=== PATIENT | male | born 1965 | race Hispanic/Latino ===

== ENCOUNTER 2017-05-01 02:25 | Inpatient (IN) | payer MEDICAID ==
[2017-05-01 02:26] VITALS: BMI 25.8
[2017-05-01 02:31] LABS: ABG ALLEN TEST YES; ARTERIAL BLOOD GAS HCO3 25.2 mmol/L (21-28); ARTERIAL BLOOD GAS MODE 100%NRB; ARTERIAL BLOOD GAS O2 CAPACITY 17.5 mL/dL (16-24); ARTERIAL BLOOD GAS O2 CONTENT 17.5 ML/dL (15-23); ARTERIAL BLOOD GAS PH 7.32 (7.35-7.45); ARTERIAL BLOOD GAS PO2 375 mm/Hg (80-100); ARTERIAL BLOOD HGB O2 SAT 93.7 % (95.0-98.0); CARBOXYHEMOGLOBIN 3.6 % (0.5-1.5); HHB 0.1 % (0.0-5.0); METHEMOGLOBIN 2.7 % (0.0-3.0)
[2017-05-01] MEDS ORDERED: Nitroglycerin 50mg in D5W 50 MG/250 ML BOTTLE IV ONE (02:31)
[2017-05-01 02:43] LABS: VENOUS BLOOD GAS BASE EXCESS 1.9 mmol/L (0.0-2.0); VENOUS BLOOD GAS PCO2 69 mmHg (40-60); VENOUS BLOOD PH 7.26 (7.32-7.43)
[2017-05-01 02:48] LABS: BASO # 0.1 K/uL (0.0-0.2); BASO % 1.2 % (0.0-2.0); EOS # 0.2 K/uL (0.0-0.7); EOS % 2.3 % (0.0-4.0); HEMATOCRIT 36.1 % (35.0-51.0); LYMPH # 1.9 K/uL (1.0-4.3); LYMPH % 26.6 % (20.0-40.0); MEAN CELL VOLUME 82.3 fl (80.0-94.0); MEAN CORPUSCULAR HEMOGLOBIN 27.7 pg (27.0-31.0); MEAN CORPUSCULAR HGB CONC 33.7 g/dL (33.0-37.0); MEAN PLATELET VOLUME 8.2 fl (7.2-11.7); MONO # 0.5 K/uL (0.0-0.8); MONO % 7.3 % (0.0-10.0); NEUT # 4.5 K/uL (1.8-7.0); NEUT % 62.6 % (50.0-75.0); RED CELL DISTRIBUTION WIDTH 15.7 % (11.5-14.5); WHITE BLOOD COUNT 7.3 K/uL (4.8-10.8)
[2017-05-01] MEDS ORDERED: Albuterol-Ipratrop 3 mg / 0.5 (3 ml) UD INH STA ×2 (02:51→02:52)
--- NOTE | 2017-05-01 02:54 | ED PDOC ---
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 Patient states he is compliant with his medications. Of note, EMS attempted to place patient on CPAP but patient would not tolerate it. Past Medical History Reviewed: Historical Data, Nursing Documentation, Vital Signs Vital Signs: Last Vital Signs Temp 99.1 F 05/01/17 02:27 Pulse 89 05/01/17 03:19 Resp 26 H 05/01/17 03:32 BP 127/70 05/01/17 03:19 Pulse Ox 99 05/01/17 03:19 - Medical History PMH: Back Problems (disc surgery x 3), Depression, HTN Denies: Diabetes, Hepatitis, HIV, Chronic Kidney Disease, Seizures, Sexually Transmitted Disease - Surgical History Surgical History: Back Surgery - Family History Family History: States: No Known Family Hx - Immunization History Hx Tetanus Toxoid Vaccination: No Hx Influenza Vaccination: No Hx Pneumococcal Vaccination: No - Home Medications Home Medications: Ambulatory Orders Medication Instructions Recorded Hydrochlorothiazide [HCTZ] 12.5 mg PO DAILY #30 05/01/15 Acetaminophen/Oxycodone Hydr 1 tab PO Q6H 05/17/15 [Percocet 10/325 mg Tab] Cyclobenzaprine [Flexeril] 10 mg PO TID PRN #0 tab 05/19/15 Meloxicam [Mobic] 15 mg PO DAILY PRN 05/01/17 amLODIPine [Norvasc] 10 mg PO DAILY 05/01/17 - Allergies Allergies/Adverse Reactions: Allergies Allergy/AdvReac Type Severity Reaction Status Date / Time No Known Allergies Allergy Verified 05/30/16 10:09 Review of Systems ROS Statement: Except As Marked, All Systems Reviewed And Found Negative Cardiovascular: Positive for: Chest Pain Respiratory: Positive for: Shortness of Breath Physical Exam - Reviewed Nursing Documentation Reviewed: Yes Vital Signs Reviewed: Yes - Physical Exam Appears: Positive for: In Acute Distress (moderate to severe respiratory distress ) Head Exam: Positive for: ATRAUMATIC, NORMAL INSPECTION, NORMOCEPHALIC Skin: Positive for: Warm, Dry, Mottled Eye Exam: Positive for: Normal appearance, EOMI, PERRL ENT: Positive for: Normal ENT Inspection Neck: Positive for: Normal, Painless ROM, Supple Cardiovascular/Chest: Positive for: Regular Rate, Rhythm. Negative for: Murmur , Tachycardia Respiratory: Positive for: Crackles (diffuse crackles all the way up to lung bases b/l ), Respiratory Distress (moderate to severe respiratory distress ), Other (able to speak near full sentences ) Gastrointestinal/Abdominal: Positive for: Normal Exam, Soft. Negative for: Tenderness Back: Positive for: Normal Inspection. Negative for: L CVA Tenderness, R CVA Tenderness Extremity: Positive for: Normal ROM, Swelling (BLE 2+ pitting edema up to knees ). Negative for: Tenderness, Deformity Neurologic/Psych: Positive for: Alert, Oriented - Laboratory Results Result Diagrams: 05/01/17 02:33 05/01/17 02:33 - ECG O2 Sat by Pulse Oximetry: 100 Pulse Ox Interpretation: Normal - Critical Care Total Time (In Min): 60 Medical Decision Making Medical Decision Makin: Impression: acute pulmonary edema possibly secondary to new onset CHF Plan: ABG, VBG EKG Labs CXR duoneb 3ml INH x2, Lasix 80mg IVP, nitro 50mg/250ml D5W, solu-medrol 125mg IVP blood culture UA reassess 4AM: Pt.'s breathing markedly improved after lasix, nitro, and high flow o2. 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 Will place in ICU for one night, case discussed with Dr. Almanzar, hospitalist. Scribe Attestation: Documented by Vanesa Dominguez acting as a scribe for Josh Walters MD. Provider Scribe Attestation: All medical record entries made by the Scribe were at my direction and personally dictated by me. I have reviewed the chart and agree that the record accurately reflects my personal performance of the history, physical exam, medical decision making, and the department course for this patient. I have also personally directed, reviewed, and agree with the discharge instructions and disposition. Disposition - Clinical Impression Clinical Impression: Respiratory distress, CHF (congestive heart failure), COPD (chronic obstructive pulmonary disease) - Disposition Disposition Time: 04:00 Condition: STABLE
[2017-05-01 03:12] LABS: ALB/GLOB RATIO 1.3 (1.0-2.1); ALKALINE PHOSPHATASE 129 U/L (38-126); ALT/SGPT 65 U/L (21-72); AST/SGOT 69 U/L (17-59); BILIRUBIN,TOTAL 0.3 mg/dl (0.2-1.3); BLOOD UREA NITROGEN 10 mg/dl (9-20); CALCIUM 8.4 mg/dL (8.4-10.2); CARBON DIOXIDE 26 mmol/L (22-30); CHLORIDE 99 mmol/L (98-107); GFR AFRICAN-AMERICAN > 60; GLUCOSE,RANDOM 135 mg/dL (75-110); POTASSIUM 3.7 MMOL/L (3.6-5.0); SODIUM 135 mmol/l (132-148); TOTAL PROTEIN 7.6 G/DL (6.3-8.2)
--- NOTE | 2017-05-01 04:15 | CP.PCM.HP ---
History of Present Illness - History of Present Illness History of Present Illness: CC: SOB HPI: This is a 52 y/o male with MHx significant for HTN who comes in with worsening SOB, MOURA, and orthopnea x 2 days. States he believes this started after he began taking Meloxicam a few days ago. Denies any CP or pressure per se , only breathing difficulties. Denies palpitations/diaphoresis. Denies cough, f/ c/n/v/d. Has never had these types of breathing symptoms before. Nothing seems to make symptoms better or worse. ROS: 14 systems reviewed, negative other than HPI MHx: HTN SHx: Back surgeries in the past Allergies: Naproxen Medications: As per med rec Family Hx: CAD and DM2 on both sides; brother recently with NH@58 Social Hx: Lives alone, smokes 1 ppd, occasional EtOH Present on Admission - Present on Admission Any Indicators Present on Admission: No Past Patient History - Infectious Disease Hx of Infectious Diseases: None - Tetanus Immunizations Tetanus Immunization: Unknown - Past Medical History & Family History Past Medical History?: Yes - Past Social History Smoking Status: Heavy Smoker > 10 Cigarettes Daily - CARDIAC Hx Hypertension: Yes - PULMONARY Hx Respiratory Disorders: No - NEUROLOGICAL Hx Seizures: No - HEENT Hx HEENT Problems: No - RENAL Hx Chronic Kidney Disease: No - ENDOCRINE/METABOLIC Hx Endocrine Disorders: No - HEMATOLOGICAL/ONCOLOGICAL Hx Human Immunodeficiency Virus (HIV): No - INTEGUMENTARY Hx Dermatological Problems: No - MUSCULOSKELETAL/RHEUMATOLOGICAL Hx Musculoskeletal Disorders: Yes - GASTROINTESTINAL Hx Gastrointestinal Disorders: No Hx Vomiting: Yes - GENITOURINARY/GYNECOLOGICAL Hx Sexually Transmitted Disorders: No - PSYCHIATRIC Hx Depression: Yes - SURGICAL HISTORY Hx Surgeries: Yes - ANESTHESIA Hx Anesthesia: Yes Hx Anesthesia Reactions: No Hx Malignant Hyperthermia: No Meds Allergies/Adverse Reactions: Allergies Allergy/AdvReac Type Severity Reaction Status Date / Time No Known Allergies Allergy Verified 05/30/16 10:09 Physical Exam - Constitutional Appears: No Acute Distress - Head Exam Head Exam: ATRAUMATIC, NORMOCEPHALIC - Eye Exam Eye Exam: EOMI, PERRL - ENT Exam ENT Exam: Mucous Membranes Moist - Neck Exam Neck exam: Positive for: Full Rom - Respiratory Exam Respiratory Exam: Rales, NORMAL BREATHING PATTERN - Cardiovascular Exam Cardiovascular Exam: REGULAR RHYTHM, +S1, +S2 - GI/Abdominal Exam GI & Abdominal Exam: Normal Bowel Sounds, Soft - Extremities Exam Extremities exam: Positive for: full ROM, normal inspection - Neurological Exam Neurological exam: Alert, CN II-XII Intact, Oriented x3 - Psychiatric Exam Psychiatric exam: Normal Affect, Normal Mood - Skin Skin Exam: Dry, Warm Results - Vital Signs Recent Vital Signs: Last Vital Signs Temp 99.1 F 05/01/17 02:27 Pulse 89 05/01/17 03:19 Resp 26 H 05/01/17 03:32 BP 127/70 05/01/17 03:19 Pulse Ox 99 05/01/17 03:19 - Labs Result Diagrams: 05/01/17 02:33 05/01/17 02:33 Labs: Laboratory Results - last 24 hr 05/01/17 05/01/17 05/01/17 02:25 02:33 02:33 WBC 7.3 RBC 4.39 L Hgb 12.2 Hct 36.1 MCV 82.3 D MCH 27.7 MCHC 33.7 RDW 15.7 H Plt Count 366 D MPV 8.2 Neut % (Auto) 62.6 Lymph % (Auto) 26.6 [place] % (Auto) 7.3 Eos % (Auto) 2.3 Baso % (Auto) 1.2 Neut # 4.5 Lymph # 1.9 [place] # 0.5 Eos # 0.2 Baso # 0.1 PT INR APTT pCO2 53 H pO2 375 H HCO3 25.2 ABG pH 7.32 L ABG Total CO2 28.9 H ABG O2 Saturation 99.9 H ABG O2 Content 17.5 ABG Base Excess 0.4 ABG Hemoglobin 12.5 ABG Carboxyhemoglobin 3.6 H POC ABG HHb (Measured) 0.1 ABG Methemoglobin 2.7 ABG O2 Capacity 17.5 Gopi Test Yes VBG pH VBG pCO2 VBG HCO3 VBG Total CO2 VBG O2 Sat (Calc) VBG Base Excess VBG Potassium A-a O2 Difference 272.0 Hgb O2 Saturation 93.7 L Glucose Lactate Vent Mode 100%nrb FiO2 100.0 Blood Gas Comments Crit Value Called To Crit Value Called By Crit Value Read Back Blood Gas Notified Time Sodium 135 Potassium 3.7 Chloride 99 Carbon Dioxide 26 Anion Gap 15 BUN 10 Creatinine 1.0 Est GFR ( Amer) > 60 Est GFR (Non-Af Amer) > 60 Random Glucose 135 H Calcium 8.4 Total Bilirubin 0.3 AST 69 H D ALT 65 Alkaline Phosphatase 129 H D Troponin I 0.0290 NT-Pro-B Natriuret Pep 1230 H Total Protein 7.6 Albumin 4.4 Globulin 3.3 Albumin/Globulin Ratio 1.3 Venous Blood Potassium 05/01/17 05/01/17 02:33 02:35 WBC RBC Hgb Hct MCV MCH MCHC RDW Plt Count MPV Neut % (Auto) Lymph % (Auto) [place] % (Auto) Eos % (Auto) Baso % (Auto) Neut # Lymph # [place] # Eos # Baso # PT 10.8 INR 1.0 APTT 28.0 pCO2 pO2 31 HCO3 ABG pH ABG Total CO2 ABG O2 Saturation ABG O2 Content ABG Base Excess ABG Hemoglobin ABG Carboxyhemoglobin POC ABG HHb (Measured) ABG Methemoglobin ABG O2 Capacity Gopi Test VBG pH 7.26 L VBG pCO2 69 H* VBG HCO3 25.1 VBG Total CO2 33.1 H VBG O2 Sat (Calc) 61.6 VBG Base Excess 1.9 VBG Potassium 3.7 A-a O2 Difference Hgb O2 Saturation Glucose 124 H Lactate 1.1 Vent Mode FiO2 100.0 Blood Gas Comments 100nrb Crit Value Called To Emmanuel duncan md Crit Value Called By 333 Crit Value Read Back Y Blood Gas Notified Time 240 Sodium 133.0 Potassium Chloride 99.0 Carbon Dioxide Anion Gap BUN Creatinine Est GFR ( Amer) Est GFR (Non-Af Amer) Random Glucose Calcium Total Bilirubin AST ALT Alkaline Phosphatase Troponin I NT-Pro-B Natriuret Pep Total Protein Albumin Globulin Albumin/Globulin Ratio Venous Blood Potassium 3.7 - EKG Data EKG Interpreted by: Myself EKG shows normal: Sinus rhythm Rate: Normal - EKG Data EKG comments: LBBB, but this is present in prior EKGs - Imaging and Cardiology Chest x-ray Status: Image reviewed by me (Some mild vascular congestion) Assessment & Plan (1) CHF (congestive heart failure) Assessment and Plan: 52 y/o male who presents with what appears to be 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 1) CHF -Will admit to ICU given nitro gtt and need for high flow O2 -Will try to wean of nitro gtt -Cont lasix 40 mg IV daily -Serial troponins -EKG in AM -Echo in AM -Cardiology consult in AM -- Damle 2) HTN -- hold BP medications while on nitro gtt 3) DVT PPx -- SQ Lovenox Status: Acute (2) DVT prophylaxis Status: Acute (3) HTN (hypertension) Status: Acute
[2017-05-01 04:22] LABS: RBC URINE 1 /hpf (0-3); URINE BACTERIA RARE (<OCC); URINE BILIRUBIN NEGATIVE (NEGATIVE); URINE BLOOD NEGATIVE (NEGATIVE); URINE COLOR COLORLESS (YELLOW); URINE GLUCOSE (UA) NEG (Normal); URINE KETONE NEGATIVE (NEGATIVE); URINE LEUKOCYTE ESTERASE NEG Leu/uL (Negative); URINE PROTEIN NEGATIVE (NEGATIVE); URINE UROBILINOGEN 0.2-1.0 mg/dL (0.2-1.0); WBC URINE < 1 /hpf (0-5)
[2017-05-01] MEDS: Nitroglycerin 50mg in D5W 50 MG/250 ML BOTTLE IV ONE ×2 (05:34→05:35)
[2017-05-01] MEDS ORDERED: Enoxaparin 40 mg Syringe SC SCH (09:00)
--- NOTE | 2017-05-01 11:01 | CP.PCM.CON ---
History of Present Illness - History of Present Illness History of Present Illness: Full Note Dictated Congestive cardiomyopathy HTN (chr ANSAID use) Chr lower back pain COPD (due to chr cigarette use) Past Patient History - Infectious Disease Hx of Infectious Diseases: None - Tetanus Immunizations Tetanus Immunization: Unknown - Past Medical History & Family History Past Medical History?: Yes - Past Social History Smoking Status: Heavy Smoker > 10 Cigarettes Daily - CARDIAC Hx Hypertension: Yes - PULMONARY Hx Respiratory Disorders: No - NEUROLOGICAL Hx Seizures: No - HEENT Hx HEENT Problems: No - RENAL Hx Chronic Kidney Disease: No - ENDOCRINE/METABOLIC Hx Endocrine Disorders: No - HEMATOLOGICAL/ONCOLOGICAL Hx Human Immunodeficiency Virus (HIV): No - INTEGUMENTARY Hx Dermatological Problems: No - MUSCULOSKELETAL/RHEUMATOLOGICAL Hx Musculoskeletal Disorders: Yes - GASTROINTESTINAL Hx Gastrointestinal Disorders: No Hx Vomiting: Yes - GENITOURINARY/GYNECOLOGICAL Hx Sexually Transmitted Disorders: No - PSYCHIATRIC Hx Depression: Yes - SURGICAL HISTORY Hx Surgeries: Yes - ANESTHESIA Hx Anesthesia: Yes Hx Anesthesia Reactions: No Hx Malignant Hyperthermia: No Meds Allergies/Adverse Reactions: Allergies Allergy/AdvReac Type Severity Reaction Status Date / Time No Known Allergies Allergy Verified 05/30/16 10:09 - Medications Medications: Current Medications Amlodipine Besylate (Norvasc) 10 mg PO DAILY SUJATA Enoxaparin Sodium (Lovenox) 40 mg SC DAILY SUJATA PRN Reason: Protocol Furosemide (Lasix) 40 mg IVP DAILY SJUATA Nitroglycerin/Dextrose (Nitroglycerin 50 Mg/250 Ml D5w) 50 mg in 250 mls @ 1.5 mls/hr IV .Q24H ONE; 5 MCG/MIN PRN Reason: Protocol Stop: 05/02/17 03:44 Last Admin: 05/01/17 05:35 Dose: Not Given Results - Vital Signs Recent Vital Signs: Last Vital Signs Temp 97.6 F 05/01/17 08:33 Pulse 76 05/01/17 08:33 Resp 20 05/01/17 08:33 BP 130/76 05/01/17 08:33 Pulse Ox 98 05/01/17 08:33 - Labs Result Diagrams: 05/01/17 02:33 05/01/17 02:33 Labs: Laboratory Results - last 24 hr 05/01/17 03:50 Urine Color Colorless Urine Clarity Clear Urine pH 6.0 Ur Specific [place] 1.006 Urine Protein Negative Urine Glucose (UA) Neg Urine Ketones Negative Urine Blood Negative Urine Nitrate Negative Urine Bilirubin Negative Urine Urobilinogen 0.2-1.0 Ur Leukocyte Esterase Neg Urine RBC (Auto) 1 Urine Microscopic WBC < 1 Urine Bacteria Rare
--- NOTE | 2017-05-01 11:57 | RAD ---
PROCEDURE: CHEST RADIOGRAPH, 1 VIEW HISTORY: resp distress COMPARISON: Comparison is made to the previous study 05/17/2015 FINDINGS: LUNGS: Mild pulmonary vascular congestion is noted. PLEURA: No pneumothorax or pleural fluid seen. CARDIOVASCULAR: The cardiac silhouette is prominent in size. OSSEOUS STRUCTURES: No significant abnormalities. VISUALIZED UPPER ABDOMEN: Normal. OTHER FINDINGS: None. IMPRESSION: Mild pulmonary vascular congestion is noted.
--- NOTE | 2017-05-01 13:54 | CARD ---
APPROVED REPORT EKG Measurement Heart [id number] [place] [id number] <Conclusion> Sinus tachycardia Possible Left atrial enlargement Left bundle branch block Abnormal ECG
--- NOTE | 2017-05-01 13:54 | CARD ---
APPROVED REPORT EKG Measurement Heart [id number] <Conclusion> Sinus tachycardia Possible Left atrial enlargement Left bundle branch block Abnormal ECG
--- NOTE | 2017-05-01 17:39 | CON ---
DATE: 05/01/2017 He is hospitalized under the hospitalist's care in room 402, bed 2. HISTORY OF PRESENT ILLNESS: This 52-year-old longstanding hypertensive man, a chronic cigarette user who smokes up to 2 packs of cigarettes a day came into the hospital complaining of profound shortnes s of breath and orthopnea. Admits to having swollen feet for a long time, but has severe effort into lerance because of lower back pain for which he was operated on 16-17 years back. He reports that du ring the back procedure he had cardiac arrhythmia and underwent a coronary angiogram in 2000 and no s ignificant coronary problems were noted. He has never experienced any chest pain, never suffered a m yocardial infarction and denies being treated for fluid in the lungs. Admits to eating salty food. His father of coronary artery disease and a brother who is 4 years older than him has had dolan ry bypass graft surgery. PHYSICAL EXAMINATION: GENERAL: Shows a young man who now breathes a lot more comfortably after having diuresed following i ntravenous Lasix. He is able to lie virtually flat and breathes 16-18 breaths per minute and can car ry on a conversation. VITAL SIGNS: Has a heart rate of 80 beats per minute, regular and a blood pressure of 146/80 mmHg. NECK: His jugular venous pressure was not elevated. CHEST: Emphysematous. EXTREMITIES: There was mild pitting edema of both lower extremities. The extremities are warm, nail beds are pink. There was no central or peripheral cyanosis. There was no clubbing. HEART: The apex was not palpable. The first and second heart sounds were distant but normal. A rhonda nt S3 gallop was audible. A few basilar rales were audible. ABDOMEN: Soft. Liver and spleen were not palpable. His electrocardiogram showed sinus rhythm with a pattern of left bundle branch block. Echocardiogram done this morning shows an enlarged left ventricle with significant left ventricular systolic dysfun ction. LABORATORY DATA: Shows a hemoglobin and hematocrit of 12.2 grams and 36.1% respectively. His arteri al blood gases while on room of 100% rebreather mask his pCO2 was 53 and pO2 was 375. His lactate wa s 1.1. His BUN and creatinine were 10 and 1 mg percent. His electrolytes were normal. Troponin was negative for any myocyte injury. ProBNP was 12,030 pg/mL. IMPRESSION: At this time is congestive cardiomyopathy, possibly secondary to hypertension, chronic o bstructive pulmonary disease with chronic lower back pain and chronic opioid use for analgesia. The patient is being diuresed. Will be started on an MIGNON inhibitor and if he tolerates a small dose of b eta blockade eventually he will need workup to rule out coronary artery disease. David Matt MD cc: 23 TT: 05/01/2017 17:38:36 Confirmation # [id number] Dictation # [id number] mn
--- NOTE | 2017-05-01 18:33 | CARD ---
APPROVED REPORT EXAM: Two-dimensional and M-mode echocardiogram with Doppler and color Doppler. Other Information Quality : GoodRhythm : NSR INDICATION Congestive Heart Failure 2D DIMENSIONS IVSd0.89 (0.7-1.1cm)LVDd7.44 (3.9-5.9cm) LVOT Diameter1.61 (1.8-2.4cm)PWd0.73 (0.7-1.1cm) IVSs0.95 (0.8-1.2cm)LVDs6.74 (2.5-4.0cm) FS (%) 9.4 %PWs1.24 (0.8-1.2cm) M-Mode DIMENSIONS Left Atrium (MM)5.10 (2.5-4.0cm)IVSd0.56 (0.7-1.1cm) Aortic Root3.35 (2.2-3.7cm)LVDd8.77 (4.0-5.6cm) Aortic Cusp Exc.1.82 (1.5-2.0cm)PWd0.91 (0.7-1.1cm) IVSs1.22 cmFS (%) 26 % LVDs6.46 (2.0-3.8cm)PWs1.12 cm Mitral Valve MV E Vqbzjgpo256.4cm/sMV DECEL [id number] A Daulbnsr120.1cm/s MV PAO23qcH/A ratio1.0MVA (PHT)4.16cm2 TDI Lateral E' Peak V10.67cm/sMedial E' Peak V8.15cm/sE/Lateral E'10.0 E/Medial E'13.1 Pulmonary Valve PV Peak Zruqenfo397.4cm/s LEFT VENTRICLE The Left Ventricle is severely dilated. There is normal left ventricular wall thickness. Left ventricle systolic function is severely impaired. The Ejection Fraction is - 20%. There is global severe LV hypokinesia. Transmitral Doppler flow pattern is abnormal. No left ventricle thrombus noted on this study. There is no ventricular septal defect visualized. There is no left ventricular aneurysm. There is no mass noted in the left ventricle. RIGHT VENTRICLE The right ventricle is normal size. There is normal right ventricular wall thickness. The right ventricular systolic function is normal. ATRIA The left atrium is mildly dilated. There is no thrombus suspected in the left atrium. The right atrium size is normal. The interatrial septum is intact with no evidence for an atrial septal defect. AORTIC VALVE The aortic valve is mildly thickened. There is mild to moderate aortic regurgitation. There is no aortic valvular stenosis. MITRAL VALVE The mitral valve is normal in structure and function. There is no evidence of mitral valve prolapse. There is no mitral valve stenosis. Mitral regurgitation is moderate. TRICUSPID VALVE The tricuspid valve is normal in structure and function. There is trace tricuspid regurgitation. There is no tricuspid valve prolapse or vegetation. There is no tricuspid valve stenosis. PULMONIC VALVE The pulmonary valve is normal in structure and function. There is no pulmonic valvular regurgitation. GREAT VESSELS The aortic root is normal in size. The IVC was not visualized. PERICARDIAL EFFUSION There is a tiny posterior pericardial effusion. There is no pleural effusion. <Conclusion> The Left Ventricle is severely dilated. There is normal left ventricular wall thickness. Left ventricle systolic function is severely impaired. The Ejection Fraction is - 20%. The left atrium is mildly dilated. The aortic valve is mildly thickened but not stenotic.. There is mild to moderate aortic regurgitation. The mitral and tricuspid valves are normal. There is moderate mitral regurgitation and trace tricuspid regurgitation.
[2017-05-01] MEDS: Oxycodone/Acetaminophen 5/325 mg Tab PO PRN (20:17)
[2017-05-02 06:40] LABS: MEAN CELL VOLUME 82.4 fl (80.0-94.0); MEAN CORPUSCULAR HEMOGLOBIN 26.8 pg (27.0-31.0); MEAN CORPUSCULAR HGB CONC 32.5 g/dL (33.0-37.0); WHITE BLOOD COUNT 12.6 K/uL (4.8-10.8)
[2017-05-02 06:54] LABS: BLOOD UREA NITROGEN 18 mg/dl (9-20); CARBON DIOXIDE 32 mmol/L (22-30); CHLORIDE 96 mmol/L (98-107); GFR AFRICAN-AMERICAN > 60; GLUCOSE,RANDOM 97 mg/dL (75-110); POTASSIUM 3.9 MMOL/L (3.6-5.0); SODIUM 136 mmol/l (132-148)
[2017-05-02] MEDS: Oxycodone/Acetaminophen 5/325 mg Tab PO PRN (07:38)
--- NOTE | 2017-05-02 08:52 | CP.PCM.PN ---
Subjective - Date & Time of Evaluation Date of Evaluation: 05/02/17 Time of Evaluation: 08:30 - Subjective Subjective: Sitting OOB, reports much relief following diuresis Sinus rhythm at 80 BPM (LBB ) BP 136/70 mm Hg JVP flat Mild pitting oedema present Few basal rales+ Labs (BUN/Creatinin) stable , electrolytes stable Echo shows severe LV dysfunction Pt on Loop diretic+ ACEI+ Beta danny Need for low salt diet explained Pt under stands that he needs to be tested for CAD Lipid profile requested Objective - Vital Signs/Intake and Output Vital Signs (last 24 hours): Temp Pulse Resp BP Pulse Ox 97.9 F 78 20 130/74 95 05/02/17 04:43 05/02/17 04:43 05/02/17 04:43 05/02/17 04:43 05/02/17 04:43 - Medications Medications: Current Medications Carvedilol (Coreg) 6.25 mg PO Q12 SUJATA Cyclobenzaprine HCl (Flexeril) 10 mg PO TID PRN PRN Reason: Muscle spasm Last Admin: 05/02/17 07:38 Dose: 10 mg Enoxaparin Sodium (Lovenox) 40 mg SC DAILY SUJATA PRN Reason: Protocol Furosemide (Lasix) 40 mg IVP DAILY [facility] Last Admin: 05/01/17 14:00 Dose: 40 mg Lisinopril (Zestril) 10 mg PO DAILY [facility] Last Admin: 05/01/17 14:01 Dose: 10 mg Oxycodone/Acetaminophen (Percocet 5/325 Mg Tab) 2 tab PO Q6H PRN PRN Reason: Pain, severe (8-10) Last Admin: 05/02/17 07:38 Dose: 2 tab - Labs Labs: 05/02/17 05:15 05/02/17 05:15 PT 10.8 Seconds (9.8-13.1) 05/01/17 02:33 INR 1.0 (0.9-1.2) 05/01/17 02:33 APTT 28.0 Seconds (25.6-37.1) 05/01/17 02:33
--- NOTE | 2017-05-02 10:51 | CP.PCM.DIS ---
Provider - Provider Date of Admission: 05/01/17 03:48 Attending physician: Divina Almanzar MD Primary care physician: Shaik Kwan BLAND Consults: cardiology consult Time Spent in preparation of Discharge (in minutes): 20 Hospital Course - Lab Results Lab Results: Most Recent Lab Values WBC 12.6 K/uL (4.8-10.8) H D 05/02/17 05:15 RBC 4.12 Mil/uL (4.40-5.90) L 05/02/17 05:15 Hgb 11.0 g/dL (12.0-18.0) L 05/02/17 05:15 Hct 34.0 % (35.0-51.0) L 05/02/17 05:15 MCV 82.4 fl (80.0-94.0) 05/02/17 05:15 MCH 26.8 pg (27.0-31.0) L 05/02/17 05:15 MCHC 32.5 g/dL (33.0-37.0) L 05/02/17 05:15 RDW 16.0 % (11.5-14.5) H 05/02/17 05:15 Plt Count 339 K/uL (130-400) 05/02/17 05:15 MPV 8.2 fl (7.2-11.7) 05/01/17 02:33 Neut % (Auto) 62.6 % (50.0-75.0) 05/01/17 02:33 Lymph % (Auto) 26.6 % (20.0-40.0) 05/01/17 02:33 [place] % (Auto) 7.3 % (0.0-10.0) 05/01/17 02:33 Eos % (Auto) 2.3 % (0.0-4.0) 05/01/17 02:33 Baso % (Auto) 1.2 % (0.0-2.0) 05/01/17 02:33 Neut # 4.5 K/uL (1.8-7.0) 05/01/17 02:33 Lymph # 1.9 K/uL (1.0-4.3) 05/01/17 02:33 [place] # 0.5 K/uL (0.0-0.8) 05/01/17 02:33 Eos # 0.2 K/uL (0.0-0.7) 05/01/17 02:33 Baso # 0.1 K/uL (0.0-0.2) 05/01/17 02:33 PT 10.8 Seconds (9.8-13.1) 05/01/17 02:33 INR 1.0 (0.9-1.2) 05/01/17 02:33 APTT 28.0 Seconds (25.6-37.1) 05/01/17 02:33 pCO2 53 mm/Hg (35-45) H 05/01/17 02:25 pO2 31 mm/Hg (30-55) 05/01/17 02:35 HCO3 25.2 mmol/L (21-28) 05/01/17 02:25 ABG pH 7.32 (7.35-7.45) L 05/01/17 02:25 ABG Total CO2 28.9 mmol/L (22-28) H 05/01/17 02:25 ABG O2 Saturation 99.9 % (95-98) H 05/01/17 02:25 ABG O2 Content 17.5 ML/dL (15-23) 05/01/17 02:25 ABG Base Excess 0.4 mmol/L (-2.0-3.0) 05/01/17 02:25 ABG Hemoglobin 12.5 g/dL (11.7-17.4) 05/01/17 02:25 ABG Carboxyhemoglobin 3.6 % (0.5-1.5) H 05/01/17 02:25 POC ABG HHb (Measured) 0.1 % (0.0-5.0) 05/01/17 02:25 ABG Methemoglobin 2.7 % (0.0-3.0) 05/01/17 02:25 ABG O2 Capacity 17.5 mL/dL (16-24) 05/01/17 02:25 Gopi Test Yes 05/01/17 02:25 VBG pH 7.26 (7.32-7.43) L 05/01/17 02:35 VBG pCO2 69 mmHg (40-60) H* 05/01/17 02:35 VBG HCO3 25.1 mmol/L 05/01/17 02:35 VBG Total CO2 33.1 mmol/L (22-28) H 05/01/17 02:35 VBG O2 Sat (Calc) 61.6 % (40-65) 05/01/17 02:35 VBG Base Excess 1.9 mmol/L (0.0-2.0) 05/01/17 02:35 VBG Potassium 3.7 mmol/L (3.6-5.2) 05/01/17 02:35 A-a O2 Difference 272.0 mm/Hg 05/01/17 02:25 Hgb O2 Saturation 93.7 % (95.0-98.0) L 05/01/17 02:25 Sodium 133.0 mmol/L (132-148) 05/01/17 02:35 Chloride 99.0 mmol/L (98-107) 05/01/17 02:35 Glucose 124 mg/dL (75-110) H 05/01/17 02:35 Lactate 1.1 mmol/L (0.7-2.1) 05/01/17 02:35 Vent Mode 100%nrb 05/01/17 02:25 FiO2 100.0 % 05/01/17 02:35 Blood Gas Comments 100nrb 05/01/17 02:35 Crit Value Called To Emmanuel duncan md 05/01/17 02:35 Crit Value Called By Jonathan 05/01/17 02:35 Crit Value Read Back Y 05/01/17 02:35 Blood Gas Notified Time 240 05/01/17 02:35 Sodium 136 mmol/l (132-148) 05/02/17 05:15 Potassium 3.9 MMOL/L (3.6-5.0) 05/02/17 05:15 Chloride 96 mmol/L (98-107) L 05/02/17 05:15 Carbon Dioxide 32 mmol/L (22-30) H 05/02/17 05:15 Anion Gap 12 (10-20) 05/02/17 05:15 BUN 18 mg/dl (9-20) 05/02/17 05:15 Creatinine 1.0 mg/dL (0.8-1.5) 05/02/17 05:15 Est GFR ( Amer) > 60 05/02/17 05:15 Est GFR (Non-Af Amer) > 60 05/02/17 05:15 Random Glucose 97 mg/dL (75-110) 05/02/17 05:15 Calcium 9.0 mg/dL (8.4-10.2) 05/02/17 05:15 Total Bilirubin 0.3 mg/dl (0.2-1.3) 05/01/17 02:33 AST 69 U/L (17-59) H D 05/01/17 02:33 ALT 65 U/L (21-72) 05/01/17 02:33 Alkaline Phosphatase 129 U/L (38-126) H D 05/01/17 02:33 Troponin I 0.0250 ng/mL (0.00-0.120) 05/02/17 00:10 NT-Pro-B Natriuret Pep 1230 pg/ml (0-900) H 05/01/17 02:33 Total Protein 7.6 G/DL (6.3-8.2) 05/01/17 02:33 Albumin 4.4 g/dL (3.5-5.0) 05/01/17 02:33 Globulin 3.3 gm/dL (2.2-3.9) 05/01/17 02:33 Albumin/Globulin Ratio 1.3 (1.0-2.1) 05/01/17 02:33 Venous Blood Potassium 3.7 mmol/L (3.6-5.2) 05/01/17 02:35 Urine Color Colorless (YELLOW) 05/01/17 03:50 Urine Clarity Clear (Clear) 05/01/17 03:50 Urine pH 6.0 (5.0-8.0) 05/01/17 03:50 Ur Specific [place] 1.006 (1.003-1.030) 05/01/17 03:50 Urine Protein Negative mg/dL (NEGATIVE) 05/01/17 03:50 Urine Glucose (UA) Neg mg/dL (Normal) 05/01/17 03:50 Urine Ketones Negative mg/dL (NEGATIVE) 05/01/17 03:50 Urine Blood Negative (NEGATIVE) 05/01/17 03:50 Urine Nitrate Negative (NEGATIVE) 05/01/17 03:50 Urine Bilirubin Negative (NEGATIVE) 05/01/17 03:50 Urine Urobilinogen 0.2-1.0 mg/dL (0.2-1.0) 05/01/17 03:50 Ur Leukocyte Esterase Neg Alex/uL (Negative) 05/01/17 03:50 Urine RBC (Auto) 1 /hpf (0-3) 05/01/17 03:50 Urine Microscopic WBC < 1 /hpf (0-5) 05/01/17 03:50 Urine Bacteria Rare (<OCC) 05/01/17 03:50 - Hospital Course Hospital Course: 52 y/o male with MHx significant for HTN , chronic lower back pain, smoker came in with worsening SOB, MOURA, and orthopnea x 2 days. States he believes this started after he began taking Meloxicam a few days ago. Denies any CP or pressure per se, only breathing difficulties. Denies palpitations/diaphoresis. Denies cough, f/c/n/v/d. Has never had these types of breathing symptoms before. Nothing seems to make symptoms better or worse. CXR showed mild vascular congestion , ProBNP was elevated.Patient admitted for CHF exacerbation , started on Lasix IV . Cardiology was consulted. Troponins x 3 were negative and Echo showed severely impaired LV function with EF 20 % , severely dilated. Patient clinically improved . Started on Lisinopril , Coreg, Statin, ASA and Lasix Po Patient educated on CHF , diet , life style modification, smoking cessation and exercise.Provided printed education material. Called daughter Jane and informed of work up diagnosis, treatment plan and follow up. Patient and daughter understand. Will prescribe Lisinopril, Coreg, Statin, ASA and lasix Will need stress test as out patient to rule out CAD. Follow up with engraver set up operator in 1 week Follow up with PMD in 1 week 1.Acute CHF exacerbation with systolic dysfunction Responded well to diuresis Echo showed dilated LV with EF 20 % Trop x3 -- negative cardio consulted Started on Lisinopril, coreg, asa, statin and lasix Low Na low fat low cholesterol diet Follow up as out patient with engraver set up operator for stress test 2. HTN d/c Norvasc and HCTZ started Lisinopril and Coreg 3. Smoker counselled on smoking cessation 4. Chronic low back pain on Flexeril and Percoset (2) DVT prophylaxis Status: Acute (3) HTN (hypertension) Status: Acute Discharge Exam - Head Exam Head Exam: ATRAUMATIC, NORMOCEPHALIC - Eye Exam Eye Exam: EOMI, Normal appearance, PERRL Pupil Exam: NORMAL ACCOMODATION - ENT Exam ENT Exam: Mucous Membranes Moist, Normal Exam - Neck Exam Neck exam: Full Rom, Normal Inspection - Respiratory Exam Respiratory Exam: Clear to PA & Lateral, NORMAL BREATHING PATTERN. absent: Accessory Muscle Use, Rhonchi, Wheezes, Respiratory Distress - Cardiovascular Exam Cardiovascular Exam: REGULAR RHYTHM, RRR, +S1, +S2. absent: JVD - GI/Abdominal Exam GI & Abdominal Exam: Normal Bowel Sounds, Soft. absent: Distended, Guarding, Rebound, Tenderness - Rectal Exam Rectal Exam: Deferred - Extremities Exam Extremities exam: normal capillary refill, normal inspection, pedal pulses present - Back Exam Back exam: NORMAL INSPECTION - Neurological Exam Neurological exam: Alert, CN II-XII Intact, Oriented x3, Reflexes Normal - Psychiatric Exam Psychiatric exam: Normal Affect, Normal Mood - Skin Skin Exam: Dry, Intact, Normal Color, Warm Discharge Plan - Discharge Medications Prescriptions: Aspirin 81 mg PO DAILY #30 tab.chew Atorvastatin [Lipitor] 20 mg PO DAILY #30 tab Carvedilol [Coreg] 6.25 mg PO Q12 #60 tab Furosemide [Lasix] 40 mg PO DAILY #30 udc Lisinopril [Zestril] 10 mg PO DAILY #30 tab - Follow Up Plan Condition: STABLE Disposition: HOME/ ROUTINE Patient education suggested?: Yes Instructions: Heart Failure (DC) Additional Instructions: Low fat , low salt low cholesterol diet Referrals: Shaik Bowens MD [Primary Care Provider] -
[2017-05-02 10:57] LABS: CHOLESTEROL 232 mg/dL (0-199)
--- NOTE | 2017-05-02 12:12 | PQF GENQUE ---
Dr. Mcdaniel, 2(two) queries as follows: (1) COPD ruled in or ruled out? (2) If ruled in Stable versus Exacerbation? OR:Unable to determine ER note: Pt.'s breathing markedly improved after lasix, nitro, and high flow o2. 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 Impression: Respiratory distress, CHF (congestive heart failure), COPD (chronic obstructive pulmonary disease) Cardiology note: COPD (due to chr cigarette use) O2, Solumedrol 125 mg IVP once This form is a permanent part of the medical record Clarification of your documentation is requested to better reflect the severity of illness and intensity of treatment of your patient. Indicators present [] Specify: [] [] Specify: [] [] Specify: [] [] Specify: [] Location in the medical record that reflects the above clinical findings: [] Treatment Provided: [] PHYSICIAN'S RESPONSE Based on your medical judgment of the clinical indicators outlined above please clarify the following: [] Practitioner response [x] If unable to determine, please check the box, sign and date. At present patient admitted with acute CHF exacerbation . Given his long history of smoking he probably has some degree of COPD Present On Admission (POA) Indicator: [] Present at the time of admission [] Not present at the time of admission [] Clinically Undetermined In responding to this query, please exercise your independent professional judgment. The fact that a question is asked does not imply that any particular answer is desired or expected. Thank you for your clarification on this documentation. If you have any questions please call. * Thank you, Lisa Savage RN BSN ext. #[phone] MTDD
[2017-05-02 16:00] VITALS: BP 139/79; PULSE 82; RESP 20; TEMP 98.4; O2SAT 96
== END 2017-05-02 18:00 | disposition home health service (06) | DRG 127 ==
LOC: H.ER 02:25 → H.ERHOLD 03:48 → H.TEL 08:51
PROVIDERS: ADMIT Internal Medicine; ATTEND Internal Medicine
DX: I11.0 Hypertensive heart disease with heart failure (principal); I42.0 Dilated cardiomyopathy; J44.9 Chronic obstructive pulmonary disease, unspecified; F17.210 Nicotine dependence, cigarettes, uncomplicated; G89.29 Other chronic pain; I25.10 Atherosclerotic heart disease of native coronary artery without angina pectoris; I50.23 Acute on chronic systolic (congestive) heart failure; F32.9 Major depressive disorder, single episode, unspecified; M54.5 Low back pain